=== PATIENT | female | born 1970 | race Caucasian/White ===

== ENCOUNTER 2023-08-27 08:51 | Outpatient (CLI) | payer BC | END 2023-08-27 19:53 | disposition home or self-care (01) | LOC: SMA 08:51 | PROVIDERS: ATTEND Physician Assistant Medical | DX: Z12.31 Encounter for screening mammogram for malignant neoplasm of breast (principal); R92.333 Mammographic heterogeneous density, bilateral breasts | CPT/HCPCS: 77067 ==